=== PATIENT | female | born 1980 | race Caucasian/White ===

== ENCOUNTER → 2021-06-25 | Outpatient (CLI) | payer OTHER ==
--- NOTE | 2021-06-25 14:45 | RAD ---
Ultrasound-guided fine-needle aspiration of the thyroid gland History: Left thyroid nodule Procedure: The patient provided both verbal and written consent after the procedure and possible comp lications including bleeding and infection were explained. A timeout was performed which confirmed th e name of the patient and the date of and the type of procedure and the side of the procedure. Allergies to medications were reviewed. Sonography of the thyroid gland was performed and an appropri ate skin gm was made. The anterior aspect of the [left] side of the neck was prepped and draped in the usual sterile fashion with ChloraPrep. A total of [6] cc of 1% lidocaine was utilized for local a nesthesia. Using sterile technique and ultrasound guidance, [4] separate 25-gauge fine-needle aspirat ions of the solid nodule of the [left] lobe of the thyroid gland were performed. Sonographic spot gulshan ges were performed. These aspirations were processed on slides and placed into [employer]. The specimen s were sent to laboratory for further processing and evaluation. Hemostasis was deemed adequate after 3 minutes of manual pressure. Post procedure sonography demonstrated no significant hematoma. The pa tient tolerated the procedure well without complication. Sterile Band-Aid was applied to [left] side of the neck. Impression: Ultrasound-guided fine-needle aspiration biopsy of the solid nodule of the [left] lobe of the thyroid gland was performed without complication. Follow-up will be with the patient's physician . Electronically signed by: Julio Woodard DO (06/25/2021 2:43 PM) [id number]
== END ==
LOC: US 13:15
PROVIDERS: ATTEND Otolaryngology
DX: E04.1 Nontoxic single thyroid nodule (principal)
CPT/HCPCS: 10005; C1819